=== PATIENT | male | born 1985 | race Caucasian/White ===

== ENCOUNTER 2016-12-10 14:13 | Emergency (ER) | payer BC ==
[~2016-12-10] VITALS: Ht 182.9 cm; Wt 79.4 kg
[2016-12-10 14:26] VITALS: BP 135/71
[2016-12-10] MEDS ORDERED: ACETAMINOPHEN ES 500 MG TABLET ONE (14:35)
[2016-12-10] MEDS ORDERED: IBUPROFEN 400 MG TABLET ONE (14:35)
[2016-12-10] MEDS ORDERED: IBUPROFEN 400 MG TABLET PO ONE (15:00)
[2016-12-10] MEDS ORDERED: ACETAMINOPHEN ES 500 MG TABLET PO ONE (15:00)
== END 2016-12-10 15:38 | disposition home or self-care (01) ==
LOC: ER 14:15
DX: S16.1XXA Strain of muscle, fascia and tendon at neck level, initial encounter (principal); S46.912A Strain of unspecified muscle, fascia and tendon at shoulder and upper arm level, left arm, initial encounter; V49.40XA Driver injured in collision with unspecified motor vehicles in traffic accident, initial encounter; Y93.89 Activity, other specified; Y92.413 State road as the place of occurrence of the external cause; Y99.8 Other external cause status
CPT/HCPCS: A4606; Z7610